=== PATIENT | female | born 1995 | race African-American/Black ===

== ENCOUNTER 2018-07-01 09:36 | Day surgery (SDC) | payer BC, OTHER ==
[2018-07-01 10:00] VITALS: BP 120/62; TEMP 98.5; BMI 24.8
--- NOTE | 2018-07-01 10:41 | PDOC.LDHP ---
Labor and Delivery H&P Chief complaint: loss of fluid, other (Rib pain) HPI: Location: triage CC: Here for "rib" pain MD: Ricarda NOTE: Patient has handwritten H&P in chart HPI: 22 yo AA at 29 weeks 4 days with rib pain with movement. HX CS for breech and low HERNÁN at 36-37 weeks in past, HX Bicornuate uterus. No VB reported , no SOB, no fevers, good FM. Review of Systems: complete ROS completed and as per HPI Current gestational age (weeks): 29 (4 days) Dating criteria: last menstrual period Grav: 2 Para: 1 OB History Details: CS X 1 Current complications: none Abnormal US findings: No Current medications: pre-scot vitamins Previous surgical history: other (CSection) Allergies/Adverse Reactions: Allergies Allergy/AdvReac Type Severity Reaction Status Date / Time azithromycin [From Zithromax] Allergy Verified 07/01/18 10:01 Social history: none - Physical Exam Vital signs reviewed and normal: yes General: NAD Heart: RRR Lungs: CTAB Abdomen: gravid Extremeties: no edema FHT: category 1 [place] contractions every: none - Assessment 29 weeks with: 1. musculosketeal pain, 2. possible LOF (no large gush, since 2 days) - Plan Plan: observation in L&D (Amnisure pending; SS exam to be done by me. No evidence RUQ pain. Patient in NAD. I do not suspect PTL at this time)
--- NOTE | 2018-07-01 10:53 | PDOC.EVN ---
Event Note - Event Note Event Note: Sterile Spec Exam: SSE explained to the patient and her mother. SSE performed without gel. No evidence pooling nor LOF. Cough test was negative. Valsalva negative. Amnisure sent. Clinically, there is white dsch coating the kruse suspicous for BV, I relayed this information to the patient. I collected a VP3.
[2018-07-01 11:19] LABS: Amnisure Test No Membranes Rupture (No Rupture)
[2018-07-01 11:20] LABS: Amnisure Internal Control QC ACCEPTABLE (ACCEPTABLE)
--- NOTE | 2018-07-01 11:51 | PDOC.EVN ---
Event Note - Event Note Event Note: negative...VP3 pending
--- NOTE | 2018-07-01 12:57 | PDOC.EVN ---
Event Note - Event Note Event Note: VP3 negative DX: leukorrhea of OK for outpatient care
== END 2018-07-01 12:45 | disposition home or self-care (01) ==
LOC: L&D/OP 09:36
PROVIDERS: ATTEND Obstetrics & Gynecology
DX: O99.89 Other specified diseases and conditions complicating pregnancy, childbirth and the puerperium (principal); R07.81 Pleurodynia; N89.8 Other specified noninflammatory disorders of vagina; O34.03 Maternal care for unspecified congenital malformation of uterus, third trimester; Q51.3 Bicornate uterus; Z3A.29 29 weeks gestation of pregnancy; Z79.899 Other long term (current) drug therapy; Z88.8 Allergy status to other drugs, medicaments and biological substances
CPT/HCPCS: 84112; 87480; 87510; 87660; 99284

== ENCOUNTER 2018-07-26 14:26 | Day surgery (SDC) | payer OTHER ==
[2018-07-26 15:04] VITALS: BMI 25.9
[2018-07-26 16:20] LABS: FFN Internal QC Analyzer PASS (PASS); FFN Internal QC Cassette PASS (PASS); Fetal Fibronectin Negative (Negative)
--- NOTE | 2018-07-26 17:48 | ULT ---
ULTRASOUND OBSTETRICAL COMPLETE: 07/26/18 HISTORY: 22-year-old female in third trimester of with nonreactive nonstress test. FINDINGS: number: [place] lie: Breech Maternal cervix: 3 cm in length and closed. Placenta: Anterior. No placenta previa. Amniotic fluid volume: HERNÁN = 15 mL. heart rate: 139 bpm anatomy not evaluated in detail. biometry: Head circumference (HC): 26.5 cm 28w 6d Biparietal diameter (BPD): 6.9 cm 27w 6d Abdominal circumference (AC): 25.0 cm 29w 1d Femur length (FL): 5.2 cm 27w 6d Average ultrasound age (AUA): 28w 5d Estimated date of delivery (MAURICE): 10/13/2018 Last menstrual period (LMP): 12/06/2017 Gestational age by LMP: 33w, 1d. Estimated weight (EFW): 1261 g +/- 187 g (2 lb. 12 oz +/- 7 oz.) IMPRESSION: 1. Live third trimester intrauterine gestation. 2. There is a large discrepancy of at more than four weeks, between the estimated gestational age by biometry (28 weeks, 5 days) and that obtained by LMP (33 weeks, 1 day). 3. Breech lie. PAIGE Driver POS: [facility]
--- NOTE | 2018-07-26 17:50 | ULT ---
ULTRASOUND BIOPHYSICAL PROFILE: 07/26/18 HISTORY: 22-year-old female in third trimester of with nonreactive nonstress test. FINDINGS: breathin tone: 2 movement: 2 Amniotic fluid volume: 2 The skin lifter bacon (Radha Carpio) notified nurse Rosette Villanueva of the biophysical profile score prior to this dictation. IMPRESSION: Biophysical profile score of 6/8, excluding the non-stress test. PAIGE Driver POS: [facility]
--- NOTE | 2018-07-26 19:06 | PRG ---
DATE OF SERVICE: 07/26/2018 PRIMARY OB: Dr. Ernesto Chowdary. CHIEF COMPLAINT: Uterine contractions. HISTORY OF PRESENT ILLNESS: The patient is a 22-year-old G2, P1 female with an intrauterine at 28 weeks and 4 days, presenting with abdominal pains. The patient reports the pains tend to be sharp and associated with activity movement. She works at a daycare facility and has a [id number] at home that exacerbates these pains. She is unsure whether she has uterine contractions that are associated with the pain, but she does report at times her abdomen does tighten, which is not painful but it is "creeping her out." The patient reports that she has a history of bicornuate uterus with , clearly inside one horn. She had an early delivery with her first at 36 weeks due to severe IUGR per her report and was delivered by due to breech presentation. The patient denies any recent illness, fever, fall, headache, chest pain, shortness of breath, nausea. She did have vomiting x1 today, but it has not been a regular problem. The patient denies constipation or diarrhea. She denies any new rashes, hip problems, knee problems, muscle weakness. She denies vaginal bleeding or leakage of fluid. The patient denies any urinary urgency. She does report that she was recently diagnosed with bacteriuria and has been started on cefadroxil 500 mg twice a day for 7 days, which she started yesterday. PAST MEDICAL HISTORY: Negative. PAST SURGICAL HISTORY: She has had one prior . SOCIAL HISTORY: Denies drug, alcohol, or tobacco use. ALLERGIES: ZITHROMAX, GETS HIVES. MEDICATIONS: The patient is on cefadroxil 500 mg twice a day for the next 7 days and vitamins. OB LABORATORY DATA: Blood type is O positive. Antibody screen is negative. VDRL is nonreactive. Hepatitis B surface antigen is nonreactive. HIV is nonreactive. She is rubella immune. REVIEW OF SYSTEMS: Per HPI. PHYSICAL EXAMINATION: VITAL SIGNS: Blood pressure 113/66, heart rate of 97, respiratory rate of 16, saturating 100% on room air, temperature 98.2. GENERAL: She appears to be in no acute distress. She is alert, oriented, cooperative, and pleasant to interact with. HEAD: Normocephalic, atraumatic. LUNGS: Clear to auscultation bilaterally. HEART: Has regular rate and rhythm. ABDOMEN: Nontender. She does have some tenderness with deviation of the uterus to the patient's left, recreating some of the pain in her lower abdomen. EXTREMITIES: Nontender, nonedematous. : Cervix is closed and high. heart tracing performed. Baseline is noted to be in the 140s with moderate long-term variability. We did not have reactivity and a BPP was performed which was 6/8, 2 off for breathing. The patient has since been placed back on the monitors and again were seen baseline in the 140s. With moderate long-term variability, 10 x 10 accelerations, no clear 15 x 15 accelerations. fibronectin is negative. Ultrasound is again 6/8, 2 off for breathing. ASSESSMENT AND PLAN: The patient is a 22-year-old female with musculoskeletal pains and contractions without evidence of labor. fibronectin is negative and cervix is closed. Fetus has a nonreactive NST and a 6/8 BPP, however for 28 weeks gestation, is not surprising. We have asked Ms. Heard to come back tomorrow for repeat BPP to try to seek overall reassurance as the patient's primary office, Dr. Chowdary is closed tomorrow. Job ID: [id number]
== END 2018-07-26 18:23 | disposition home health service (06) ==
LOC: L&D/OP 14:26
PROVIDERS: ATTEND Obstetrics & Gynecology
DX: O99.89 Other specified diseases and conditions complicating pregnancy, childbirth and the puerperium (principal); R10.9 Unspecified abdominal pain; R82.71 Bacteriuria; O34.03 Maternal care for unspecified congenital malformation of uterus, third trimester; Q51.3 Bicornate uterus; O32.1XX0 Maternal care for breech presentation, not applicable or unspecified; Z3A.28 28 weeks gestation of pregnancy; Z79.2 Long term (current) use of antibiotics; Z79.899 Other long term (current) drug therapy; Z88.1 Allergy status to other antibiotic agents
CPT/HCPCS: 59025; 76805; 76819; 82731; 99283

== ENCOUNTER 2018-07-27 10:57 | Day surgery (SDC) | payer OTHER ==
[2018-07-27 11:06] VITALS: BP 122/70; TEMP 98.1; BMI 25.9
--- NOTE | 2018-07-27 11:50 | PDOC.LDHP ---
Labor and Delivery H&P Chief complaint: other (repeat NST/BPP) HPI: 22 y/o at 28w5d here for repeat NST/BPP after 12/08 (breathing) yesterday. Denies any complaints today including VB, LOF, ctx. +FM. ROS neg for HEENT, cv, pulm, gi, gu, neuro, psych, skin, musculoskeletal or constitutional symptoms other than mentioned above. OB History Details: 1 prior LTCS Current complications: breech, other (bicornuate uterus) Past Medical History: None Current medications: pre-scot vitamins, other (cefadroxil) Previous surgical history: low tranverse CS Allergies/Adverse Reactions: Allergies Allergy/AdvReac Type Severity Reaction Status Date / Time azithromycin [From Zithromax] Allergy Verified 07/27/18 11:07 Social history: none - Physical Exam Vital signs reviewed and normal: yes General: NAD, resting Lungs: nonlabored breathing Abdomen: gravid Extremeties: no edema FHT: category 1 (140s, mod variability, + accels, no decels) [place] contractions every: none - Assessment 22 y/o at 28w5d with BPP 04/11 today. - Plan -: D/c home with precautions. Keep appointment with Dr. Chowdary for Monday.
--- NOTE | 2018-07-27 13:37 | ULT ---
BIOPHYSICAL PROFILE: 07/27/2018 HISTORY: A 22-year-old female. TECHNIQUE: Multiplanar antonio-scale sonographic imaging of the gravid uterus obtained. FINDINGS: A single intrauterine gestation is present. presentation is breech. heart rate ranges f rom 144 to 149 beats per minute. Amniotic fluid index is calculated at 12.3 cm. The crude unit operator reports a 2/2 score for tone, breathing, movement, and amniotic flu id. Cervical length is approximately 3.9 cm. IMPRESSION: Single intrauterine gestation, as detailed above, with 8/8 biophysical profile score. POS: [facility]
== END 2018-07-27 12:10 | disposition home or self-care (01) ==
LOC: L&D/OP 10:57
PROVIDERS: ATTEND Obstetrics & Gynecology
DX: Z01.89 Encounter for other specified special examinations (principal); O32.1XX0 Maternal care for breech presentation, not applicable or unspecified; O34.03 Maternal care for unspecified congenital malformation of uterus, third trimester; Q51.3 Bicornate uterus; Z3A.28 28 weeks gestation of pregnancy; Z79.899 Other long term (current) drug therapy; Z88.1 Allergy status to other antibiotic agents
CPT/HCPCS: 59025; 76819; 99282

== ENCOUNTER 2018-09-14 10:01 | Inpatient (IN) | payer OTHER ==
[2018-09-14 10:16] VITALS: BMI 27.4
--- NOTE | 2018-09-14 10:27 | PDOC.LDHP ---
Labor and Delivery H&P Chief complaint: contractions HPI: SEnt by Dr regan to L&D Patient seen in his office for routine care Sent to L&D for labor obs, prior CS HX HPI: 23 yo with prior CS x 1 for breech, HX bicornuate uterus, here for CTX found on NST at office. NST and BPP were normal there. She denies stong CTX , no LOF, no VB. here for labor obs. She will be for repeat CS, fetus breech. 35 weeks 6 days Review of Systems: complete ROS performed and as per HPI Current gestational age (weeks): 35 (6) Due date: 10/14/18 Dating criteria: last menstrual period Grav: 2 Para: 1 OB History Details: CS X 1, breech now Current complications: breech, other (bicornuate uterus) Current medications: pre-scot vitamins Previous surgical history: low tranverse CS Allergies/Adverse Reactions: Allergies Allergy/AdvReac Type Severity Reaction Status Date / Time azithromycin [From Zithromax] Allergy Verified 07/27/18 11:07 Social history: none - Physical Exam Vital signs reviewed and normal: yes General: NAD Heart: RRR Lungs: CTAB Abdomen: gravid FHT: category [address] [place] contractions every: irregular low amplitute - Vaginal Exam cm dilated: 1 (actually FT (but text not allowed as .5);soft) Effacement: 25% Station: -2 - Assessment 35 weeks 6 days, prior CS X 1, bicornuate uterus, here for labor obs. Would need another CS if cervical progress noted. No evidence VB or LOF - Plan Plan: observation in L&D (According to published data, ", in patients with uterine anomalies, the risk of adverse outcomes was increased in patients with minor fusion defects (arcuate, septate and t-shaped) and further increased in patients with major fusion defects (unicornuate, bicornuate and didelphys). This was true in regards to overall , spontaneous , indicated , low weight, SGA, preeclampsia, malpresentation and delivery" (Wayne N et al. Type of congenital uterine anomaly and adverse outcomes;J Matern Med.; 2014). We will observe for 2 hours at least and see if cervic progressed (FT now), we will also follow BPs.), other (IVF boluses 1 liter)
[2018-09-14] MEDS ORDERED: Lactated Ringer's 1,000 ML IV SCH ×2 (10:30→12:00)
--- NOTE | 2018-09-14 11:32 | PDOC.EVN ---
Event Note - Event Note Event Note: PREOP NOTE: I am at bedside Last CS was at 35 weeks Now, is currently 35 weeks 6 days...BREECH PLAN: Due to HX 35 week PTB, prior CS, cannot release home due to regular CTX pattern. Due to patient c/o increasing CTX pain, and CTX pattern, I have recommended Repeat CS today/now rather than continuing with expectant care. We will notify NICU Will notify [facility] I will order celestone x1 although not sure if time will allow for benefit
[2018-09-14] MEDS ORDERED: Betamet Acet/Betamet Na Ph 30 MG/5 ML VIAL IM SCH (11:45)
[2018-09-14] MEDS ORDERED: Promethazine HCl 25 MG/ML VIAL IM PRN ×3 (11:51→13:39)
[2018-09-14] MEDS ORDERED: Butorphanol Tartrate 1 MG/ML VIAL SLOW IVP PRN (11:51)
[2018-09-14 11:53] LABS: Hemoglobin 11.6 g/dL (12.0-16.0); Mean Corpuscular HGB CONC 33.1 g/dL (32.0-36.0); Mean Corpuscular Hemoglobin 28.5 pg (27.0-31.0); Mean Corpuscular Volume 86.1 fL (78.0-98.0); Mean Platelet Volume 6.9 fL (7.4-10.4); Platelet Count 306 thou/uL (130-400); RBC Distribution Width 12.8 % (11.5-14.5); Red Blood Cell (RBC) Count 4.06 mill/uL (4.20-5.40); White Blood Cell (WBC) Count 5.8 thou/uL (4.8-10.8)
[2018-09-14] MEDS ORDERED: Bicitra 30 ML UDCUP ONE (11:58)
[2018-09-14] MEDS ORDERED: Betamet Acet/Betamet Na Ph 30 MG/5 ML VIAL ONE (11:58)
[2018-09-14] MEDS ORDERED: Bicitra 30 ML UDCUP PO SCH (12:00)
[2018-09-14] MEDS ORDERED: CEFAZOLIN 2 GM in Premix Bag 1 BAG IVPB SCH (12:00)
[2018-09-14] MEDS ORDERED: HYDROmorphone 2 MG/ML VIAL SLOW IVP PRN ×2 (12:04→13:39)
[2018-09-14] MEDS ORDERED: Meperidine HCl/PF 25 MG/ML VIAL SLOW IVP PRN ×2 (12:04→13:39)
[2018-09-14] MEDS ORDERED: Eucerin (Mineral Oil/Petrolatum,White) 30 gm Jar TOP PRN ×2 (12:04→13:39)
[2018-09-14] MEDS ORDERED: diphenhydrAMINE 50 MG/ML VIAL IVP PRN ×2 (12:04→13:39)
[2018-09-14] MEDS ORDERED: Ondansetron PF 4 MG/2 ML Vial IVP PRN ×3 (12:04→15:56)
[2018-09-14] MEDS ORDERED: L&D-Morphine 4 MG/ML VIAL SLOW IVP PRN ×2 (12:04→13:39)
[2018-09-14] MEDS ORDERED: Naloxone HCl 0.4 mg/ml Vial IVP PRN ×4 (12:04→13:39)
[2018-09-14] MEDS ORDERED: Ondansetron HCl/PF 4 MG/2 ML Vial IVP PRN ×2 (12:04→13:39)
[2018-09-14] MEDS ORDERED: Promethazine HCl 25 MG SUPP PR PRN ×2 (12:04→13:39)
[2018-09-14] MEDS ORDERED: Naloxone HCl 0.4 mg/ml Vial IV PRN ×2 (12:04→13:39)
[2018-09-14] MEDS ORDERED: Ketorolac Tromethamine 30 MG/ML VIAL IVP PRN (12:04)
[2018-09-14] MEDS ORDERED: Fentanyl 100 MCG/2 ML VIAL ONE (12:05)
[2018-09-14] MEDS ORDERED: MORPHINE 5 MG/10 ML PF VIAL ONE (12:06)
[2018-09-14] MEDS ORDERED: Ondansetron PF 4 MG/2 ML Vial ONE (12:15)
[2018-09-14] MEDS ORDERED: Communication Order-Pharmacy FS SCH ×2 (12:15→13:45)
[2018-09-14] MEDS ORDERED: Ketorolac Tromethamine 30 MG/ML VIAL ONE (12:15)
[2018-09-14] MEDS ORDERED: Ketorolac Tromethamine 30 MG/ML VIAL IVP SCH ×2 (12:15→13:45)
[2018-09-14] MEDS ORDERED: Oxytocin 10 UNITS/ML VIAL ONE (12:15)
[2018-09-14] MEDS ORDERED: ePHEDrine/0.9% NaCl/PF SYRINGE 50 mg/10 ml ONE (12:22)
[2018-09-14 12:34] LABS: Syphilis Antibody Nonreactive (Nonreactive); Syphilis Antibody Index 0.07 S/CO (<1.00 Non-Reactive)
[2018-09-14] MEDS ORDERED: PHENYLEPHRINE-NS 100 MCG/ML 10 ML SYRINGE ONE ×2 (14:20→17:02)
--- NOTE | 2018-09-14 14:38 | OP ---
DATE OF PROCEDURE: 09/14/2018 PREOPERATIVE DIAGNOSIS: Intrauterine at 35 weeks and 6 days with labor, thought to be result of a complete bicornuate uterus with left-sided gestation in breech presentation. POSTOPERATIVE DIAGNOSIS: Intrauterine at 35 weeks and 6 days with labor, thought to be result of a complete bicornuate uterus with left-sided gestation in breech presentation. PROCEDURE PERFORMED: Repeat low transverse section. FINDINGS: 1. Viable female . COMPLICATIONS: None. DETAILS OF THE PROCEDURE: The patient was consented and taken back to the operating room where spinal anesthesia was found to be adequate. She was then prepped and draped in the normal sterile fashion. A timeout was performed by the entire operative team. The incision was then marked with a marking pen tested using sharp pickups. An incision was then made with a scalpel. The incision was carried through the adipose tissue down to the underlying rectus fascia using both sharp dissection as well as cautery. Once the fascia was identified, it was incised in the midline and then the fascial incision was carried through in both lateral directions using sharp as well as cautery dissection techniques. Next, the superior aspect of the rectus fascia was grasped with 2 Kirsten clamps, which was tented up and the rectus muscles were dissected off using blunt dissection as well as cautery dissection. Similarly, the inferior aspect of the fascial incision was grasped with 2 Kirsten clamps, tented up and the rectus muscles were dissected off bluntly as well as sharply. Next, the rectus muscles were in the midline and the peritoneum identified. The peritoneum was then carefully grasped with 2 hemostats and entered sharply. The peritoneal incision was extended superiorly and inferiorly and bladder blade was placed in the lower abdomen. At this point, the uterus was identified and the bladder flap was then developed using pickups with teeth as well as Metzenbaum scissors in both lateral directions. The bladder flap was then dissected downwards using the dog food shredder operator's finger as well as Metzenbaum scissors. The bladder blade was replaced. The lower uterine segment was then identified and entered sharply using a clean scalpel. The uterine incision was then dissected downwards until thin layer of muscle remained and this was entered bluntly using a hemostat to avoid any injury to the baby. The uterine incision was then stretched using two fingers in both lateral directions. An amniotomy was performed artificially using a hemostat and the baby was delivered using fundal pressure in a gentle fashion. Once out, the baby's mouth and nose were bulb suctioned, cord clamped and cut, and the baby was handed to waiting attendants. Next, the uterus was exteriorized, cleared of all clots and debris and the uterine incision was repaired with #1 Monocryl in a running locking fashion. A 2nd suture of the same type was used to obtain complete hemostasis at the uterine incision. The bladder flap was reapproximated using 3-0 Monocryl. Next, patient's left and right adnexa were inspected and appeared to be within normal limits. The posterior cul-de-sac was blotted dry and hemostasis assured. One more look at the uterine incision demonstrated hemostasis. Next, the uterus was replaced back within the abdomen. The peritoneum was reapproximated using 2-0 Monocryl without difficulty. The rectus muscles were then allowed to come back together and 0 chromic was used to aid in reapproximation of the muscle as necessary. The rectus fascia was then reapproximated in a running fashion using 0 Vicryl suture. The adipose tissue was then examined and appeared to be well approximated without any obvious separations. Finally, the skin was reapproximated with 3-0 Monocryl on a You needle without difficulty and Dermabond adhesive was applied to the skin. Once the glue was dry, the drapes were removed and the patient was transferred to an ambulatory bed where she was taken to recovery awake and in stable condition. Sponge, lap, and needle counts were correct x3. Job ID: [id number] MTDD
[2018-09-14] MEDS ORDERED: Promethazine HCl 25 MG/ML VIAL ONE (15:06)
[2018-09-14 15:26] LABS: HBSAg Index 0.52 S/CO (0-0.99); HIV (1/2) Antibody/Antigen Non-Reactive (NonReactive); HIV 1/2 INDEX 0.19 S/CO (<1.00); Hep B Surf Ag Non-Reactive S/CO (NonReactive)
[2018-09-14] MEDS ORDERED: Lanolin Ointment 7 GM TUBE TOP PRN (15:56)
[2018-09-14] MEDS ORDERED: HYDROcodone/Acetaminophen 5/325 mg Tablet PO PRN (15:56)
[2018-09-14] MEDS ORDERED: Methylergonovine 0.2 MG/ML VIAL IM PRN (15:56)
[2018-09-14] MEDS ORDERED: NS / Oxytocin 40 units/1000ml 1,000 ML IV SCH (15:56)
[2018-09-14] MEDS ORDERED: diphenhydrAMINE 25 MG CAP PO PRN (15:56)
[2018-09-14] MEDS ORDERED: Bisacodyl 10 MG SUPP PR PRN (15:56)
[2018-09-14] MEDS ORDERED: Simethicone Chewable 80 MG TAB PO PRN (15:56)
[2018-09-14] MEDS ORDERED: Misoprostol 200 MCG TAB PR PRN (15:56)
[2018-09-14] MEDS ORDERED: ePHEDrine 50 MG/ML VIAL ONE (17:02)
[2018-09-14] MEDS: Ibuprofen 800 MG TAB PO SCH (22:35)
[2018-09-14] MEDS: Docusate Calcium (SURFAK) 240 MG CAP PO SCH (22:35)
[2018-09-15] MEDS: Ketorolac Tromethamine 30 MG/ML VIAL IVP PRN ×2 (00:57→08:57)
[2018-09-15 05:34] LABS: Mean Corpuscular HGB CONC 33.3 g/dL (32.0-36.0); Mean Corpuscular Hemoglobin 28.7 pg (27.0-31.0); Mean Platelet Volume 6.3 fL (7.4-10.4); Platelet Count 272 thou/uL (130-400); RBC Distribution Width 12.5 % (11.5-14.5); White Blood Cell (WBC) Count 14.5 thou/uL (4.8-10.8)
--- NOTE | 2018-09-15 05:38 | PDOC.PP ---
Post Progress Note Post Day #: 1 Subjective: Doing well, states pain is well comntrolled. Wallis now out this AM, and feels well PO intake tolerated: yes Flatus: yes Ambulation: yes Vital Signs (12 hours) Temp Pulse Resp BP Pulse Ox 09/15/18 03:45 98.2 F 75 18 112/60 98 09/15/18 00:45 73 18 110/64 96 09/14/18 20:35 98.1 F 83 18 112/67 97 09/14/18 17:40 89 18 117/66 Weight Weight 150 lb Vitals reviewed since arrival to vargas - Physical Examination General: NAD Cardiovascular: no m/r/g Respiratory: clear to auscultation bilaterally, non-labored breathing Abdominal: + bowel sounds, lochia, no distention, appropriately TTP Extremities: negative homans (B) Skin: CS incision dry & intact (DB in use, I removed the surgical dressing at bedside since DB was on the incision), no rash Neurological: no gross focal deficits Psychiatric: A&Ox3, normal affect Result Diagrams: 09/15/18 05:27 Additional Labs: Post Labs Blood Type O POSITIVE 09/14/18 15:52 Hep Bs Antigen Non-Reactive S/CO (NonReactive) 09/14/18 11:41 (1) Single delivery by section Code(s): O82 - ENCOUNTER FOR DELIVERY WITHOUT INDICATION Status: Acute - Assessment/Plan POD 1 doing well, s/p repeat CS at 36 weeks for threatened PTL with bicornuate uterus. POstop doing well...incision C/D/I. Plan: ambulate and OOB today Wallis now out Reg diet Limit narcotics as able Prob dsch POD 2 or 3
[2018-09-15] MEDS: Ibuprofen 800 MG TAB PO SCH ×3 (07:55→21:47)
[2018-09-15] MEDS: Docusate Calcium (SURFAK) 240 MG CAP PO SCH ×2 (07:55→21:47)
[2018-09-15] MEDS ORDERED: Sodium Chloride 0.9% 10 ML ONE (08:47)
[2018-09-15] MEDS ORDERED: Adacel (T-DAP) 0.5 ML SYRINGE IM ONE (09:00)
[2018-09-15] MEDS ORDERED: Varicella virus, LIVE 0.5 ML VIAL SC ONE (09:00)
[2018-09-15] MEDS ORDERED: Measles/Mumps/Rubella 10 MCG/0.5 ML VIAL SC ONE (09:00)
--- NOTE | 2018-09-15 11:32 | PDOC.PP ---
Post Progress Note Post Day #: 1 PO intake tolerated: yes Flatus: yes Ambulation: yes Vital Signs (12 hours) Temp Pulse Resp BP Pulse Ox 09/15/18 08:00 98.2 F 76 16 107/57 L 99 09/15/18 03:45 98.2 F 75 18 112/60 98 09/15/18 00:45 73 18 110/64 96 Weight Weight 150 lb - Physical Examination Cardiovascular: no m/r/g, RRR Respiratory: clear to auscultation bilaterally Abdominal: no distention Extremities: negative homans (B) Skin: CS incision dry & intact, no rash Neurological: no gross focal deficits Psychiatric: A&Ox3, normal affect Result Diagrams: 09/15/18 05:27 Additional Labs: Post Labs Blood Type O POSITIVE 09/14/18 15:52 Hep Bs Antigen Non-Reactive S/CO (NonReactive) 09/14/18 11:41
--- NOTE | 2018-09-16 00:22 | PDOC.PP ---
Post Progress Note Post Day #: POD#2 Subjective: Resting, no complaints. PO intake tolerated: yes Flatus: yes Ambulation: yes Vital Signs (12 hours) Temp Pulse Resp BP 09/15/18 19:53 98.9 F 84 18 114/56 L Weight Weight 68.039 kg - Physical Examination General: NAD Respiratory: non-labored breathing Abdominal: no distention Skin: CS incision dry & intact Result Diagrams: 09/15/18 05:27 Additional Labs: Post Labs Blood Type O POSITIVE 09/14/18 15:52 Hep Bs Antigen Non-Reactive S/CO (NonReactive) 09/14/18 11:41 - Assessment/Plan Doing well. Baby in NICU and likely discharged tommorow per report. Ambulate.
[2018-09-16] MEDS: HYDROcodone/Acetaminophen 5/325 mg Tablet PO PRN ×2 (05:53→10:23)
[2018-09-16] MEDS: Ibuprofen 800 MG TAB PO SCH ×3 (06:05→22:23)
[2018-09-16] MEDS: Docusate Calcium (SURFAK) 240 MG CAP PO SCH ×2 (10:20→22:23)
[2018-09-17] MEDS: HYDROcodone/Acetaminophen 5/325 mg Tablet PO PRN (04:31)
[2018-09-17] MEDS: Ibuprofen 800 MG TAB PO SCH ×2 (06:02→13:09)
[2018-09-17 07:26] VITALS: BP 101/66; TEMP 97.9
[2018-09-17] MEDS: Docusate Calcium (SURFAK) 240 MG CAP PO SCH (08:25)
--- NOTE | 2018-09-17 13:09 | PDOC.PP ---
Post Progress Note Post Day #: 3 PO intake tolerated: yes Flatus: yes Ambulation: yes Vital Signs (12 hours) Temp Pulse Resp BP Pulse Ox 09/17/18 07:25 97.9 F 68 16 101/66 98 Weight Weight 150 lb - Physical Examination General: NAD Cardiovascular: no m/r/g, RRR Respiratory: clear to auscultation bilaterally, non-labored breathing Abdominal: + bowel sounds, lochia Extremities: negative homans (B) Skin: CS incision dry & intact Neurological: no gross focal deficits Psychiatric: A&Ox3, normal affect Result Diagrams: 09/15/18 05:27 Additional Labs: Post Labs Blood Type O POSITIVE 09/14/18 15:52 Hep Bs Antigen Non-Reactive S/CO (NonReactive) 09/14/18 11:41
== END 2018-09-17 13:40 | disposition home or self-care (01) | DRG 786 ==
LOC: L&D/OP 10:01 → L&D 11:56 → 3SW 15:37
PROVIDERS: ADMIT Obstetrics & Gynecology; ATTEND Obstetrics & Gynecology
PROC: 10D00Z1 Extraction of Products of Conception, Low, Open Approach (ICD-10-PCS; principal; 2018-09-14)
DX: O34.211 Maternal care for low transverse scar from previous cesarean delivery (principal); O60.14X0 Preterm labor third trimester with preterm delivery third trimester, not applicable or unspecified; O34.03 Maternal care for unspecified congenital malformation of uterus, third trimester; Q51.3 Bicornate uterus; Z3A.35 35 weeks gestation of pregnancy; Z37.0 Single live birth; O32.1XX0 Maternal care for breech presentation, not applicable or unspecified
CPT/HCPCS: 36415; 51702; 85027; 86780; 86850; 86900; 86901; 87340; 87389; 99285; J0702; J1200; J1885; J2270; J2405; J2550; J2590; J3010; J3490